=== PATIENT | male | born 1975 | race Caucasian/White ===

== ENCOUNTER 2021-10-24 13:03 | Inpatient (IN) | payer SELFPAY ==
[~2021-10-24] VITALS: Ht 165.1 cm; Wt 75.0 kg
[2021-10-24 14:46] LABS: COLLECTION METHOD CLEAN CATCH
[2021-10-24 14:51] LABS: BASO # 0.1 K/mm3 (0.0-0.2); BASO % 0.2 % (0.0-2.0); GRAN # 19.4 K/mm3 (1.4-6.5); GRAN % 89.7 % (42.2-75.2); HEMATOCRIT 42.2 % (42.0-52.0); HEMOGLOBIN 14.7 g/dl (13.5-18.0); LYMPH # 0.9 K/mm3 (1.2-3.4); LYMPH % 4.1 % (20.0-51.0); MEAN CELL VOLUME 89 fl (80.0-100.0); MEAN CORPUSCULAR HEMOGLOBIN 31 pg (27-31); MEAN CORPUSCULAR HGB CONC 35 g/dl (33.0-37.0); MEAN PLATELET VOLUME 8.7 fl (7.4-10.4); MONO # 1.2 K/mm3 (0.1-0.6); MONO % 5.5 % (1.7-9.3); PLATELET COUNT 302 K/mm3 (130-400); RED BLOOD COUNT 4.75 M/mm3 (4.20-5.60); REDCELL DISTRIBUTION WIDTH-CV 12.7 % (11.5-14.5)
[2021-10-24 14:53] LABS: MUCOUS Present (NOT PRESENT); PH 5 (5-8); SQUAMOUS EPITHELIAL 0-2 /hpf (0-10); URINE APPEARANCE Clear (CLEAR/HAZY); URINE BACTERIA None Seen /hpf (NONE SEEN); URINE BILIRUBIN Negative (NEGATIVE); URINE BLOOD Negative (NEGATIVE); URINE COLOR Amber (YELLOW); URINE GLUCOSE Negative (NEGATIVE); URINE KETONE 1+ (NEGATIVE); URINE LEUKOCYTE ESTERASE Negative (NEGATIVE); URINE NITRATE Negative (NEGATIVE); URINE PROTEIN(semi-quant) 1+ (NEGATIVE); URINE RBC 0-2 /hpf (0-2)
[2021-10-24 15:11] LABS: ALBUMIN 4.3 gm/dL (3.5-5.0); BILIRUBIN,TOTAL 1.2 mg/dL (0.2-1.2); CALCIUM 9.3 mg/dL (8.4-10.2); CREATININE, serum 0.88 mg/dL (0.72-1.25); TOTAL PROTEIN 7.9 gm/dL (6.2-8.1)
--- NOTE | 2021-10-24 18:47 | NUR ---
REPORT FROM ER NURSE. PATIENT TO ROOM 346. WILL REPORT OFF TO AYE ALEJANDRA
[2021-10-24 18:49] VITALS: BP 103/61; PULSE 94; TEMP 100
--- NOTE | 2021-10-24 19:20 | NUR ---
pt admitted with assistance of hospital tobacco baler using speaker phone. oriented to plan of care and questions answered. pt reports only mild RUQ pain @ this time, requesting jello and ice water, IV fluids infusing per piv @100 cc/hr, up ad lexx to restroom.
[2021-10-24 19:26] LABS: CALCIUM 8.3 mg/dL (8.4-10.2); CREATININE, serum 0.8 mg/dL (0.72-1.25); POTASSIUM 3.7 mmol/L (3.5-4.5)
[2021-10-25 00:26] VITALS: BP 106/51; PULSE 102; TEMP 101.7
[2021-10-25 03:49] VITALS: BP 103/65; PULSE 102; TEMP 98
[2021-10-25 06:22] LABS: BASO % 0.1 % (0.0-2.0); EOS % 0.1 % (0.0-4.0); GRAN # 17.9 K/mm3 (1.4-6.5); GRAN % 86.1 % (42.2-75.2); HEMATOCRIT 39.9 % (42.0-52.0); HEMOGLOBIN 13.3 g/dl (13.5-18.0); LYMPH # 1.2 K/mm3 (1.2-3.4); LYMPH % 5.8 % (20.0-51.0); MEAN CELL VOLUME 92 fl (80.0-100.0); MEAN CORPUSCULAR HEMOGLOBIN 31 pg (27-31); MEAN CORPUSCULAR HGB CONC 33 g/dl (33.0-37.0); MEAN PLATELET VOLUME 9.1 fl (7.4-10.4); MONO # 1.5 K/mm3 (0.1-0.6); MONO % 7.1 % (1.7-9.3); PLATELET COUNT 256 K/mm3 (130-400); RED BLOOD COUNT 4.35 M/mm3 (4.20-5.60); REDCELL DISTRIBUTION WIDTH-CV 12.8 % (11.5-14.5)
--- NOTE | 2021-10-25 07:03 | NUR ---
awake resting in bed, bedside shift report received from JOSELITO Aguiar
--- NOTE | 2021-10-25 07:17 | NUR ---
pt had fever during the noc of 101.7, tylenol given and down to 98.0, WBC down to 20.8 this am, Dr Devries notified per phone. will be coming to see pt this morning. pain reported x1, morphine given and pt able to sleep. NPO since midnight.
[2021-10-25 07:47] VITALS: BP 111/64; BP 97/46; PULSE 105; TEMP 98.1
--- NOTE | 2021-10-25 08:10 | NUR ---
resting in bed, states only minimal pain, 11/19, full assessment completed, see interventions for further info, will continue to rest in bed
--- NOTE | 2021-10-25 09:47 | NUR ---
Dr Devries in to see patient
--- NOTE | 2021-10-25 10:24 | NUR ---
provided water for patient per his request, offered jello and broth but declines
--- NOTE | 2021-10-25 10:29 | NUR ---
switchboard wire worker helper met with patient and patients sister Merna ([phone]) at bedside. Due to patient nor his sister speaking/understanding maeveisma, a small engine trainer was used to complete intake. [place] from [facility].He lives at home with his sister, his brother in law Noel ([phone]) and 10 year old son. Patient has one other son that is still living[facility]. Patient does not utilize any DME to assist with mobility and is independent with his activities of daily living. Patient does not have a PCP or an established pharmacy. Unknown at this time if the patient will have surgery or not. If not he will plan on returning home with his sister and follow up with the surgeon at a later time. Discharge plan: Home pending surgical needs.
--- NOTE | 2021-10-25 11:50 | NUR ---
resting in bed, has taken some water and tolerated well, clear liquid tray at bedside
[2021-10-25 12:07] VITALS: BP 101/61; PULSE 98; TEMP 98.2
--- NOTE | 2021-10-25 13:36 | NUR ---
in bed and continues to sleep, awakened when nurse entered room, denies needs
--- NOTE | 2021-10-25 15:40 | NUR ---
sleeping off and on, is now awake and c/o headache, medicated with motrin 400mg po
[2021-10-25 16:49] VITALS: BP 110/63; PULSE 93; TEMP 98.4
--- NOTE | 2021-10-25 17:00 | NUR ---
resting in bed talking on phone, states headache is gone since receiving motrin
--- NOTE | 2021-10-25 18:10 | NUR ---
taking po fluids well and IV rate down to 60ml/hr
--- NOTE | 2021-10-25 18:50 | NUR ---
bedside shift report given to JOSELITO Urrutia
[2021-10-25 20:24] VITALS: BP 101/57; PULSE 84; TEMP 98.1
[2021-10-26] VITALS (8 sets, daily range): BP systolic 95–136; BP diastolic 52–65; PULSE 86–97; TEMP 97.2–99.1
--- NOTE | 2021-10-26 06:24 | NUR ---
C/O PAIN X1 THIS SHIFT, NORCO GIVEN, PT SLEPT WELL. IVF INFUSING PER PIV @60CC/HR, TAKING CLEAR LIQUIDS, NO N/V REPORTED.
[2021-10-26 06:45] LABS: HEMATOCRIT 38.2 % (42.0-52.0); HEMOGLOBIN 12.9 g/dl (13.5-18.0); MEAN CELL VOLUME 90 fl (80.0-100.0); MEAN CORPUSCULAR HEMOGLOBIN 30 pg (27-31); MEAN CORPUSCULAR HGB CONC 34 g/dl (33.0-37.0); MEAN PLATELET VOLUME 9.1 fl (7.4-10.4); PLATELET COUNT 252 K/mm3 (130-400); RED BLOOD COUNT 4.25 M/mm3 (4.20-5.60); REDCELL DISTRIBUTION WIDTH-CV 12.7 % (11.5-14.5)
[2021-10-26 07:05] LABS: CALCIUM 8.4 mg/dL (8.4-10.2); CREATININE, serum 0.74 mg/dL (0.72-1.25); POTASSIUM 3.8 mmol/L (3.5-4.5)
--- NOTE | 2021-10-26 08:00 | NUR ---
PATIENT IS A&O. VSS. PATIENT IS GUAMANIAN SPEAKING ONLY. NURSING PCT SPEAKS GUAMANIAN AND RN ABLE TO USE TRANSLATE DURING ASSESSMENT. PATIENT HAS A FAMILY MEMBER COMING LATER THIS AM WHO SPEAKS A LITTLE [place]. PATIENT REPORTS PAIN IN ABD AND WOULD LIKE A PAIN PILL. GAVE PRN NORCO, ONE TAB WITH SIPS. IV FLUIDS INFUSING INTO LEFT AC IV. NO C/O N/V. HEAD TO TOE ASSESSMENT COMPLETE. INDEPENDENT IN ROOM. CALL LIGHT IN REACH.
--- NOTE | 2021-10-26 09:29 | NUR ---
Initial visit; Patient acknowledged Ct Scan Technologist and was receptive to Ct Scan Technologist's 'hand signing prayer' Ct Scan Technologist offered prayer and patient nodded in 'thanks.'
--- NOTE | 2021-10-26 16:00 | NUR ---
AT BEDSIDE AND WAS ABLE TO TALK WITH PATIENT USING OFFICE MACHINE REPAIR SHOP SUPERVISOR. PATIENT REPORTS HE IS BLOATED & HAS SOME MILD ABD TENDERNESS BUT FEELS BETTER THAN HE DID. PLAN TO GET A REPEAT SCAN IN THE MORNING. NO OTHER NEW ORDERS AT THIS TIME.
[2021-10-27 03:38] VITALS: BP 93/58; PULSE 101; TEMP 98.4
[2021-10-27 06:14] LABS: HEMATOCRIT 40.3 % (42.0-52.0); HEMOGLOBIN 13.4 g/dl (13.5-18.0); MEAN CELL VOLUME 91 fl (80.0-100.0); MEAN CORPUSCULAR HEMOGLOBIN 30 pg (27-31); MEAN CORPUSCULAR HGB CONC 33 g/dl (33.0-37.0); PLATELET COUNT 314 K/mm3 (130-400); RED BLOOD COUNT 4.41 M/mm3 (4.20-5.60); REDCELL DISTRIBUTION WIDTH-CV 12.6 % (11.5-14.5)
--- NOTE | 2021-10-27 07:45 | NUR ---
PATIENT IS A&O AND SW[place]ISH SPEAKING ONLY. PATIENT'S AT BEDSIDE WHO SPEAKS A LITTLE CITIZEN OF [place]. ON UNIT AND MAKING PATIENT ROUNDS. UPON ENTERING ROOM PATIENT & COMMUNICATED TO STAFF VIA EDUCATIONAL PSYCHOLOGY PROFESSOR THAT THE PATIENT WAS NOT GIVEN PATIENT MEDS ALL NIGHT UNTIL EARLY THIS AM. PATIENT REPORTS HE ATTEMPTED TO COMMUNICATE, POINTING TO HIS ABD, SEVERAL TIMES THROUGHOUT THE NIGHT TRYING TO GET PAIN MEDS. PATIENT REPORTS NURSE DID NOT USE THE EDUCATIONAL PSYCHOLOGY PROFESSOR LINE TILL EARLY THIS AM BEFORE SHIFT CHANGE WHEN HE WAS NEARLY IN TEARS. WAS UPSET THAT THE PATIENT WAS UNABLE TO COMMUNICATE HIS NEEDS LAST NIGHT AND NO STEPS WERE TAKEN TO COMMUNICATE TILL EARLY THIS AM, APPROX AROUND 0515 AM. VSS. PATIENT REPORTS ABD PAIN IS BETTER AFTER GETTING PAIN PILL. ABD IS SL DISTENDED WITH POSITIVE BOWL SOUNDS. NO C/O N/V. TOLERATING LOW FIBER DIET. LEFT AC IV TO INT. HEAD TO TOE ASSESSMENT COMPLETE. PATIENT INDEPENDENT IN ROOM. CT SCAN SCHEDULED FOR THIS AM AND WILL DETERMINE DISCHARGE PLANS.
[2021-10-27 07:58] VITALS: BP 100/61; PULSE 83; TEMP 98.1
--- NOTE | 2021-10-27 09:05 | NUR ---
PATIENT GOING DOWN TO RADIOLOGY FOR CT SCAN.
[2021-10-27] MEDS ORDERED: AMOXICILLIN 8751 TAB PO (09:25)
[2021-10-27] MEDS ORDERED: NORCO 325 MG-51 TAB PO (09:25)
[2021-10-27 12:00] VITALS: BP 106/66; PULSE 84; TEMP 98
[2021-10-27 15:41] VITALS: BP 113/73; PULSE 94; TEMP 99.5
--- NOTE | 2021-10-27 15:45 | NUR ---
PATIENT FOUND TO HAVE LOW GRADE TEMP OF 99.5. PATIENT STATES HE FEELS FINE. PROVIDER NOTIFIED. GAVE PRN TYLENOL. PATIENT STILL CLEARED FOR DISCHARGE.
[2021-10-27 16:05] VITALS: TEMP 99.6
--- NOTE | 2021-10-27 16:30 | NUR ---
PATIENT DISCHARGING HOME VIA AMBULATORY WITH SISTER. GAVE DISCHARGE INSTRUCTIONS WITH THE HELP OF A PAST DUE ACCOUNTS CLERK. DISCUSSED E-SCRIPTS SENT & FOLLOW UP APT. ANSWERED QUESTIONS/CONCERNS. PCT DC'D IV SITE AND COVERED WITH GAUZE & COBAN. PATIENT IS DRESSED, PACKED AND DISCHARGED TO HOME.
== END 2021-10-27 16:30 | disposition home or self-care (01) | DRG 373 ==
LOC: COL.ER 13:03 → SURG 17:32
PROVIDERS: Physician Assistant; ADMIT Surgery
DX: K35.32 Acute appendicitis with perforation, localized peritonitis, and gangrene, without abscess (principal)
CPT/HCPCS: J1885; J2270; J2405; J2543; J7030; Q9967

== ENCOUNTER 2023-09-07 13:00 | Outpatient (RCR) | payer SELFPAY ==
[~2023-09-07 13:00] MED LIST: AMOXICILLIN 8751 TAB PO; NORCO 325 MG-51 TAB PO
== END 2023-09-08 | disposition home or self-care (01) ==
LOC: WSOT
DX: T84.84XA Pain due to internal orthopedic prosthetic devices, implants and grafts, initial encounter (principal)

== ENCOUNTER 2023-09-21 13:00 | Outpatient (RCR) | payer SELFPAY | END 2023-10-09 | disposition home or self-care (01) | LOC: WSOT | DX: T84.84XD Pain due to internal orthopedic prosthetic devices, implants and grafts, subsequent encounter (principal) ==